=== PATIENT | female | born 1955 | race African-American/Black ===

== ENCOUNTER 2018-08-25 19:21 | Emergency (ER) | payer OTHER ==
[~2018-08-25] VITALS: Ht 162.6 cm; Wt 95.3 kg
[2018-08-25 20:58] VITALS: BP 160/82
== END 2018-08-25 21:00 | disposition home or self-care (01) ==
LOC: ER 19:21
DX: L03.115 Cellulitis of right lower limb (principal); R60.0 Localized edema; F17.210 Nicotine dependence, cigarettes, uncomplicated; I10 Essential (primary) hypertension; L73.2 Hidradenitis suppurativa

== ENCOUNTER 2019-08-18 07:04 | Day surgery (SDC) | payer OTHER ==
[~2019-08-18] VITALS: Ht 162.6 cm; Wt 98.4 kg
--- NOTE | ~2019-08-18 | O ---
[facility] [place] [address] OPERATIVE REPORT Name: NAZ MOBLEY Valentina Room #: DEP [facility]..#: [id number] Admission: 08/18/19 Attend Phys: Alok Pacheco MD Discharge: 08/18/19 Date of : 55 Report #: [id number] THIS REPORT FOR: //name// CC: Linn Pacheco DATE OF SERVICE: 08/18/2019 PREOPERATIVE DIAGNOSIS: Complex right axillary hidradenitis. POSTOPERATIVE DIAGNOSIS: Complex right axillary hidradenitis. PROCEDURE PERFORMED: Excision of complex right hidradenitis axillary hidradenitis. ANESTHESIA: General. SURGEON: Alok Pacheco MD COMPLICATIONS: None. ESTIMATED BLOOD LOSS: 20 mL. PROCEDURE NOTE: With the patient under general anesthesia, the axilla was prepped and draped in sterile fashion. The patient has the timeout performed. The patient has a thickened area in a transverse manner at the site of her old scar. Recently, the patient has experienced extension of this going into the posterior upper arm. Both areas were excised. I suspect there is a sinus tract from the armed into the primary area. Marking pen was used to draw out this area and then it turned out to be Y-shaped cut. Both areas were removed. Cautery was used for hemostasis. Subcutaneous tissue was brought together with 4-0 PDS in interrupted fashion. Skin was then closed with 3-0 nylon. There is a triangular corner that was brought together. This is felt to be more preferable done a large ellipse, which would be more difficult to close. This was discussed with the patient preoperatively and she understands this. Antibiotic ointment was applied, 4 x 4 tape was applied. The patient tolerated the procedure well and was taken to recovery room. By: [id number] Alok Pacheco MD /nt
--- NOTE | ~2019-08-18 | H ---
[facility] [place] [address] HISTORY AND PHYSICAL Name: NAZ MOBLEY Room #: PRE [facility] M.R.#: [id number] Admission: Attend Phys: Alok Pacheco MD Discharge: Date of : 55 Report #: [id number] THIS REPORT FOR: //name// CC: Linn Pacheco DATE OF SERVICE: 08/18/2019 PREOPERATIVE DIAGNOSIS: Recurrent complex hidradenitis in the right axilla. HISTORY OF PRESENT ILLNESS: The patient is a 63-year-old, who is here for recurrent infection in the right axilla. The patient had an excision about 20 years ago for hidradenitis in the right axilla. Also, the left axilla was also excised. The right side appears for her to have never healed up completely. On and off, she has been having flareups. She has taken multiple courses of antibiotics. Currently, it seems to be spreading more outward towards the arm. The patient is complaining of pain and drainage. The patient was treated with Humira and she did initially feel better with it, but after a while, it started to deteriorate again. The patient was seen in the office and has a complex sinus tract. There is 1 section that is transversely oriented in the axilla, and then obliquely coming out of it, there is a sinus tract that is going into the upper part of the arm sliding in the posterior direction. The patient is recommended to have both areas excised. She is brought in for procedure. She does know there is possibly issue with the healing because of the extensive nature, but I think the area can be excised and closed primarily. PAST MEDICAL HISTORY: The patient has a history of high blood pressure; history of recurrent hidradenitis suppurativa, right axilla. No heart disease, no diabetes, no lung disease, no liver disease, no kidney disease, no bleeding history, no history of blood clot. MEDICATIONS: Humira, diltiazem, HCTZ. ALLERGIES: She does not have any allergies. PAST SURGICAL HISTORY: Excision of hidradenitis both axilla 20 years ago. FAMILY HISTORY: High blood pressure, diabetes. Both parents lived to early 90s. SOCIAL HISTORY: The patient works in an office. The patient does smoke a pack a day. She rarely drinks. REVIEW OF SYSTEMS: Unremarkable. No chest pain, shortness of breath, palpitation. No numbness or weakness. [address] [address] HISTORY AND PHYSICAL Name: NAZ MOBLEY Valentina Room #: PRE [facility] M.R.#: [id number] Admission: Attend Phys: Alok Pacheco MD Discharge: Date of : 55 Report #: [id number] IMPRESSION: The patient is a 63-year-old with hidradenitis that has been an issue for many years. She has had excision in the past. Right side has never healed up like the left side has. She has had recurrent infection, drainage, treating with antibiotics. She has also been on Humira. The patient is brought in for excision of chronic hidradenitis suppurativa with sinus tract. Recently, the infection seems to be growing towards the arm, which has a separate connection, separate tract, sinus tract. I think both will need to be excised. This will likely leave a triangular shaped defect since one, sort of, comes off the other. Primary closure should be performed. I do not think she needs a complete excision of the axillary skin and does not appear to require any skin graft at this point. The patient understands the procedure, the possible wound healing issue. The patient wished to proceed. By: [id number] Alok Pacheco MD /nt
[~2019-08-18 07:04] MED LIST: CHLORTHALIDONE25 MG PO; DILTIAZEM 24HR240 M1 PO; HUMIRA40 MG/0.1 SUBQ
[2019-08-18 07:51] LABS: CALCIUM 9.9 mg/dL (8.5-10.1); POTASSIUM 3.5 mmol/L (3.5-5.1)
[2019-08-18 08:26] VITALS: BP 115/65
[2019-08-18] MEDS ORDERED: NORCO 5-325 TA1 EAC1 PO (12:02)
[2019-08-18] MEDS ORDERED: DOXYCYCLINE 10100 MG PO (12:03)
[2019-08-18 12:34] VITALS: BP 115/65
--- NOTE | 2019-08-21 15:47 | EKG ---
[place] [address] [employer] [facility] [employer] [place] [address] ELECTROCARDIOGRAM REPORT Name: LEANDRANAZ A Room #: [facility]#: [id number] Admission: 08/18/19 Attend Phys: Alok Pacheco MD Discharge: 08/18/19 Date of : 55 Report #: [id number] THIS REPORT FOR: //name// [facility] Test Date: 2019-08-18 Test Time: 07:35:34 Pat Name: NAZ MOBLEY Department: Room: Gender: F [employer] Par[employer]: sera : 1955 Requested By: Alok Pacheco Order Number: [id number] MD: Jayme Dickinson Measurements Intervals [place] Rate: 72 P: 30 ME: 173 QRS: -57 QRSD: 154 T: -9 QT: 432 QTc: 473 Interpretive Statements Sinus rhythm Probable left atrial enlargement RBBB and LAFB Left ventricular hypertrophy Baseline wander in lead(s) V1 No previous ECG available for comparison Electronically Signed On 08-21-2019 15:46:52 [employer] CD[employer] A DRIVER by Jayme Dickinson [email or web address] <ELECTRONICALLY SIGNED> By: Jayme Dickinson MD 08/21/19 1546 4 4 Jayme Dickinson MD /LARS
--- NOTE | 2019-08-21 19:06 | PATH ---
[facility] [address] [place] [address] PATHOLOGY RPT PROCEDURE Name: NAZ MOBLEY Room #: DEP [facility] M.R.#: [id number] Admission: 08/18/19 Date of : 55 Discharge: 08/18/19 Report #: [id number] Path Case #: [id number] [facility] Accession Number: [id number] . 01 Material submitted: . axilla - RIGHT AXILLARY HIDRADENITIS. Modifiers: right . 01 Clinical history: . Hidradenitis suppurativa. . 02 Diagnosis: Right axillary hidradenitis, excision: - Mature keratinous cyst associated with abscess formation as well as giant cell reaction, consistent with rupture. - Overlying squamous epithelium showing reactive changes. - Negative for malignancy. . (IUV:delon; 08/21/2019) QMS 08/21/2019 1520 Local . 02 Electronically signed: . Diana Dueñas MD, Pathologist NPI- [id number] . 01 Gross description: . Received in formalin labeled "Naz Mobley, right axillary hidradenitis" is an irregular excision of cohen-brown skin and underlying yellow-cohen lobulated soft tissue measuring entirely 8.0 x 6.5 x 2.5 cm. The skin measures 7.0 x 5.1 x 0.4 cm, and is irregular, displaying a cohen-white fibrotic scar area measuring 3.6 x 1.0 cm. Upon sectioning, the specimen displays cohen-white fibrotic cut surfaces with numerous sinus tracts. Surgical Nurse tissue is submitted in cassette A1-A2. ([facility]; 08/20/2019) [facility] 08/20/2019 1056 Local . 02 Pathologist provided ICD-10: L72.9 . 02 CPT . 132473 Specimen Comment: A courtesy copy of this report has been sent to [phone] Specimen Comment: Report sent to Performed at: [address] [id number] MD Tej Thakkar MD Phone: [phone] Performed at: 02 [place] [address] PATHOLOGY RPT PROCEDURE Name: NAZ MOBLEY A Room #: DEP [facility] M.R.#: [id number] Admission: 08/18/19 Date of : 55 Discharge: 08/18/19 Report #: [id number] Path Case #: [id number] [address] [facility], [place], [place] [id number] MD Diana Dueñas MD Phone: [phone]
== END 2019-08-18 13:15 | disposition home or self-care (01) ==
LOC: OR 07:04 → TBA 07:22 → OR 07:54
PROVIDERS: Surgery
DX: L73.2 Hidradenitis suppurativa (principal); I10 Essential (primary) hypertension; F17.210 Nicotine dependence, cigarettes, uncomplicated; Z79.899 Other long term (current) drug therapy; Z98.890 Other specified postprocedural states; Z88.8 Allergy status to other drugs, medicaments and biological substances; Z82.49 Family history of ischemic heart disease and other diseases of the circulatory system; Z83.3 Family history of diabetes mellitus
CPT/HCPCS: 50010; 50101; 50386; 50417; 56527; 62110; 62900; 70005